=== PATIENT | male | born 1965 | race Caucasian/White ===

== ENCOUNTER 2016-12-31 10:00 | Outpatient (CLI) ==
[2016-12-31 10:41] LABS: BASOPHILS # (AUTO) 0.1 K/uL (0-0.2); BASOPHILS % (AUTO) 0.7 % (0.0-3.0); EOSINOPHILS # (AUTO) 0.2 K/ul (0.0-0.7); EOSINOPHILS % (AUTO) 1.5 % (0.0-7.0); HEMATOCRIT 56.6 % (42.0-52.0); HEMOGLOBIN 18.7 g/dl (14.0-18.0); IMMATURE GRANULOCYTE % (AUTO) 0.3 % (0.0-5.0); LYMPHOCYTES # (AUTO) 2.5 K/uL (0.60-3.4); LYMPHOCYTES % (AUTO) 22.4 (10.0-50.0); MEAN CORPUSCULAR HEMOGLOBIN 30.1 pg (27.0-31.0); MONOCYTES # (AUTO) 0.9 K/uL (0.4-2.0); MONOCYTES % (AUTO) 7.7 (0-10); NEUTROPHILS # (AUTO) 7.6 K/ul (2.0-6.9); NEUTROPHILS % (AUTO) 67.4; PLATELET COUNT 174 10^3/uL (140-440); RED BLOOD COUNT 6.22 10^6/ul (4.70-6.10); WHITE BLOOD COUNT 11.23 K/ul (4.2-10.2)
[2016-12-31 10:48] LABS: BILIRUBIN,URINE Negative (NEGATIVE); KETONES,URINE Negative (NEGATIVE); LEUKOCYTE ESTERASE ,URINE Negative (NEGATIVE); NITRITE,URINE Negative (NEGATIVE); PH,URINE 5.5 (5-9); PROTEIN,URINE Trace (NEGATIVE); URINE, BLOOD Negative (NEGATIVE)
[2016-12-31 10:50] LABS: ADD URINE MICROSCOPIC YES
[2016-12-31 10:54] LABS: ALBUMIN 3.8 g/dL (3.4-5.0); ALBUMIN/GLOBULIN RATIO 1.06; ANION GAP 12.4; BILIRUBIN,TOTAL 0.69 mg/dL (0.00-1.20); BUN/CREATININE RATIO 15.47; CALCIUM 9.5 mg/dL (8.2-10.2); CHOL/HDL RATIO 6.3 (4.5-6.4); CREATININE 0.84 mg/dL (0.60-1.10); POTASSIUM 4.4 mmol/L (3.5-5.1); TOTAL PROTEIN 7.4 g/dL (6.4-8.2)
== END 2016-12-31 10:01 | disposition home or self-care (01) ==
LOC: LAB 10:00
PROVIDERS: ATTEND Nurse Practitioner Family
DX: R06.02 Shortness of breath (principal); L03.116 Cellulitis of left lower limb; E66.9 Obesity, unspecified
CPT/HCPCS: 36415; 80053; 80061; 81001; 83036; 85025; 93005; 93010

== ENCOUNTER 2017-01-28 18:23 | Inpatient (IN) ==
[2017-01-28] MEDS ORDERED: ROCEPHIN 1 GM in SODIUM CHLORIDE 50 ML IV SCH (19:30)
[2017-01-28] MEDS ORDERED: VANCOMYCIN 1 GM in SODIUM CHLORIDE 250 ML IV SCH (19:30)
[2017-01-28 19:42] VITALS: BMI 47.7
[2017-01-28 20:05] LABS: BASOPHILS # (AUTO) 0.1 K/uL (0-0.2); BASOPHILS % (AUTO) 0.4 % (0.0-3.0); EOSINOPHILS # (AUTO) 0.2 K/ul (0.0-0.7); EOSINOPHILS % (AUTO) 1.6 % (0.0-7.0); HEMATOCRIT 55.3 % (42.0-52.0); IMMATURE GRANULOCYTE % (AUTO) 0.5 % (0.0-5.0); LYMPHOCYTES # (AUTO) 1.9 K/uL (0.60-3.4); LYMPHOCYTES % (AUTO) 15.3 (10.0-50.0); MEAN CORPUSCULAR HEMOGLOBIN 29.6 pg (27.0-31.0); MEAN CORPUSCULAR HGB CONC 32.5 (31.8-35.4); MEAN CORPUSCULAR VOLUME 90.8 fl (80.0-94.0); MONOCYTES % (AUTO) 7.7 (0-10); NEUTROPHILS # (AUTO) 9.4 K/ul (2.0-6.9); NEUTROPHILS % (AUTO) 74.5; PLATELET COUNT 184 10^3/uL (140-440); RED BLOOD COUNT 6.09 10^6/ul (4.70-6.10); WHITE BLOOD COUNT 12.65 K/ul (4.2-10.2)
[2017-01-28 20:25] LABS: ALBUMIN 3.5 g/dL (3.4-5.0); ALBUMIN/GLOBULIN RATIO 1.06; ANION GAP 11.1; BILIRUBIN,TOTAL 0.5 mg/dL (0.00-1.20); BUN/CREATININE RATIO 14.28; CREATININE 0.98 mg/dL (0.60-1.10); POTASSIUM 4.1 mmol/L (3.5-5.1); TOTAL PROTEIN 6.8 g/dL (6.4-8.2)
[2017-01-28 20:35] LABS: ABG PH 7.331 (7.35-7.45)
[2017-01-28 20:36] LABS: ABG BASE EXCESS 6 (-2.0-2.0); ABG HCO3 32.2 (22.0-26.0); ABG TCO2 34 (22.0-28.0)
--- NOTE | 2017-01-28 20:49 | CT ---
EXAM: CT chest without contrast TECHNIQUE: Helical axial CT of the chest was performed without contrast with coronal and sagittal re constructions. COMPARISON: Chest x-ray from 02/07/2012 HISTORY: Shortness of breath FINDINGS: Lung parenchyma: There is a solitary pulmonary nodule in the left lung base measuring 1.4 cm in diam eter which shows no calcification or spiculation. There are no infiltrates or effusions. Mediastinum: No pathologic hilar or mediastinal adenopathy. There are some minimal coronary calcific ations. There is no pericardial effusion. No significant aortic or great vessel calcification. The a moshe is otherwise normal with no aneurysm or dissection. Upper Abdomen: No focal or acute abnormality.There is some calcific atherosclerosis of the aorta. Osseous structures: Nothing acute. Surrounding soft tissues including the thyroid gland are normal. No supraclavicular or axillary daisy opathy. IMPRESSION: 1. No acute abnormality. Specifically no evidence for infiltrate or failure. 2. Solitary pulmonary nodule in the left lung base as described. This may be managed by either PET CT, 3-month follow-up or biopsy. 3. Minimal coronary calcifications and minimal calcific atherosclerosis of the aorta.
[2017-01-28] MEDS ORDERED: MOTRIN PO PRN (20:51)
[2017-01-28] MEDS ORDERED: ALBUTEROL 0.042% NEB NEB SCH (21:00)
[2017-01-28] MEDS ORDERED: ROCEPHIN ONE (21:17)
[2017-01-28] MEDS: LOVENOX SUBCUT SCH (21:34)
[2017-01-28] MEDS ORDERED: MORPHINE 4 MG/ML SYRINGE IVP PRN (21:35)
[2017-01-28] MEDS ORDERED: NITROSTAT SL PRN (21:35)
[2017-01-28] MEDS ORDERED: VISTARIL INJ IM PRN (21:35)
[2017-01-28] MEDS ORDERED: ATROPINE SULFATE PFS IVP PRN (21:35)
[2017-01-28] MEDS: SYMBICORT 80-4.5 MCG INHALER IH SCH (21:35)
[2017-01-28] MEDS ORDERED: TYLENOL PO PRN (21:35)
[2017-01-28 21:56] LABS: ADD URINE MICROSCOPIC NO; BILIRUBIN,URINE Negative (NEGATIVE); KETONES,URINE Negative (NEGATIVE); LEUKOCYTE ESTERASE ,URINE Negative (NEGATIVE); NITRITE,URINE Negative (NEGATIVE); PH,URINE 6.5 (5-9); PROTEIN,URINE Negative (NEGATIVE); URINE, BLOOD Negative (NEGATIVE)
[2017-01-28 22:15] LABS: TROPONIN I 0.024 ng/ml (0.0000-0.4000)
[2017-01-28 22:16] LABS: CREATINE KINASE MB 3.5 ng/ml (0.0-3.6)
[2017-01-28] MEDS: SOLU-MEDROL 40 MG IVP SCH (22:41)
[2017-01-29] MEDS: DUONEB NEB SCH ×3 (05:10→21:55)
[2017-01-29] MEDS: SOLU-MEDROL 40 MG IVP SCH ×3 (05:29→20:44)
[2017-01-29 06:16] LABS: TROPONIN I 0.024 ng/ml (0.0000-0.4000)
[2017-01-29 06:17] LABS: CREATINE KINASE MB 3.3 ng/ml (0.0-3.6)
[2017-01-29] MEDS: VANCOMYCIN 1 GM in SODIUM CHLORIDE 250 ML IV SCH ×3 (08:01→21:42)
[2017-01-29] MEDS: SYMBICORT 80-4.5 MCG INHALER IH SCH ×2 (08:48→20:40)
[2017-01-29] MEDS: ASPIRIN EC PO SCH (08:49)
[2017-01-29] MEDS: LOVENOX SUBCUT SCH (08:52)
[2017-01-29] MEDS ORDERED: LOVENOX SUBCUT SCH (09:19)
--- NOTE | 2017-01-29 11:07 | PCM.PROG ---
Attending Provider: ATTENDING PROVIDER: [facility] DATE OF SERVICE: 01/29/17 SUBJECTIVE: This 51 year old WHITE/ M was hospitalized 01/28/17 with bilateral lower extremity cellulitis and edema with hypoxemia. ABG showed hypoxemia. CT chest was negative for any infiltrates. D-Dimer is negative. REVIEW OF SYSTEMS: CONSTITUTIONAL: No fever, no chills. ENDOCRINE: No weight loss or weight gain. HEENT: No sinus drainage, no sore throat. CVS: No angina symptoms. No CHF symptoms. No palpitations. No atypical chest pain for CAD. No shortness of breath. RESPIRATORY: No cough, no hemoptysis. GI: No melena. No abdominal pain. No nausea, no vomiting. : No hematuria. No polyuria. SKIN: No rash. MUSCULOSKELETAL: No pain. SERVICE DELIVERY MANAGER: No blackout, no dizziness. No headache. No double vision. PSYCHIATRIC: Not anxious; no depression. No suicidal thoughts. No homicidal thoughts. PHYSICAL EXAMINATION: GENERAL: Lying in bed in no distress. VITAL SIGNS: Temperature 97.5 F, Pulse 108, Respiratory Rate 20, BP 127/93, Pulse Ox 89% HEENT: Normocephalic, atraumatic. Mucosa is dry, pallor positive. NECK: No JVP, no carotid bruit. No lymphadenopathy. CARDIAC: S1, S2, no S3. No murmur, gallop or regurgitation. LUNGS: Decreased breath sounds with expiratory wheezing. ABDOMEN: Soft, non-tender. Bowel sounds active. No rigidity, guarding or CVA tenderness. EXTREMITIES: Bilateral lower extremity edema 3+. Redness on mata areas, multiple open areas, dry looking today, no oozing. No clubbing, cyanosis. NEUROLOGIC: Awake, alert and oriented x3. LYMPHATIC: No palpable lymph nodes SKIN: Not dry. Intact. MUSCULOSKELETAL: No joint swelling. LAB REVIEW: 01/28/17 20:04 01/28/17 20:04 01/29/17 05:38: Total Creatine Kinase 131, CK-MB (CK-2) 3.3, CK-MB (CK-2) % 2.97279, Myoglobin 68, Troponin I 0.0240 01/28/17 21:50: Urine Color Yellow, Urine Clarity Clear, Urine pH 6.5, Ur Specific Monroe 1.025, Urine Protein Negative, Urine Glucose (UA) Negative, Urine Ketones Negative, Urine Blood Negative, Urine Nitrite Negative, Urine Bilirubin Negative, Urine Urobilinogen 1.0, Ur Leukocyte Esterase Negative 01/28/17 20:04: WBC 12.65 H, RBC 6.09, Hgb 18.0, Hct 55.3 H, MCV 90.8, MCH 29.6 , MCHC 32.5, RDW Coeff of Bee 15.1 H, Plt Count 184, Immature Gran % (Auto) 0.5 , Neut % (Auto) 74.5, Lymph % (Auto) 15.3, Allen % (Auto) 7.7, Eos % (Auto) 1.6, Baso % (Auto) 0.4, Immature Gran # (Auto) 0.1, Neut # 9.4 H, Lymph # 1.9, Allen # 1.0, Eos # 0.2, Baso # 0.1, D-Dimer (Manual) 242.13, Sodium 141, Potassium 4.1 , Chloride 102, Carbon Dioxide 32, Anion Gap 11.1, BUN 14, Creatinine 0.98, Estimated GFR (MDRD) 80.00, BUN/Creatinine Ratio 14.28, Glucose 113 H, Calcium 9.0, Total Bilirubin 0.50, AST 15, ALT 22, Alkaline Phosphatase 69, B- Natriuretic Peptide 11, Total Protein 6.8, Albumin 3.5, Globulin 3.3, Albumin/ Globulin Ratio 1.06 01/28/17 20:00: Total Creatine Kinase 166, CK-MB (CK-2) 3.5, CK-MB (CK-2) % 2.04345, Myoglobin 110, Troponin I 0.0240 01/28/17 19:20: Puncture Site Lb, O2 Saturation 82.0 L, ABG pH 7.331 L, ABG pCO2 61.0 H, ABG pO2 51.0 L*, ABG HCO3 32.2 H, ABG Total CO2 34 H, ABG Base Excess 6 H, Jelani Test +, FiO2 % 21.0 ASSESSMENT: 1. Bilateral lower extremity cellulitis 2. Hypoxemia 3. Obesity PLAN: 1. Echocardiogram 2. PFT 3. Decrease Lovenox to 40 mg 4. Continue Rocephin and Vancomycin 5. Venous Doppler Plan and coordination of the patient's care discussed in the presence of Visual Display Manager and nurse. CONDITION: Stable SCRIBED BY: DEANNA CASTELLANO Window/Distribution Clerk scribed while in presence of service performed by Dr. JORGITO STUART[facility] on 01/29/17 ([id number])
--- NOTE | 2017-01-29 14:40 | US ---
EXAM: Ultrasound venous Doppler bilateral lower extremity HISTORY: Bilateral lower extremity cellulitis, edema COMPARISON: None TECHNIQUE: Venous duplex ultrasound of the right and left lower extremity was performed using color , arriaga-scale, and Doppler flow imaging. FINDINGS: There is normal color flow and arriaga scale appearance of the right and left common femoral , greater saphenous, profunda femoral, femoral, popliteal, peroneal, and (right) posterior tibial ve ins without evidence of intraluminal thrombus. Compression and augmentation is normal. The left po sterior tibial and bilateral anterior tibial veins not visualized. Bilateral subcutaneous edema IMPRESSION: No right or left lower extremity deep venous thrombosis at the visualized levels.
[2017-01-29] MEDS: ROCEPHIN 1 GM in SODIUM CHLORIDE 50 ML IV SCH (20:40)
[2017-01-30] MEDS: SOLU-MEDROL 40 MG IVP SCH ×3 (04:03→21:51)
[2017-01-30] MEDS: VANCOMYCIN 1 GM in SODIUM CHLORIDE 250 ML IV SCH ×3 (04:04→21:52)
[2017-01-30] MEDS: DUONEB NEB SCH ×3 (05:05→22:01)
[2017-01-30] MEDS ORDERED: LASIX IVP STA (08:26)
[2017-01-30] MEDS: SYMBICORT 80-4.5 MCG INHALER IH SCH ×2 (08:47→20:55)
[2017-01-30] MEDS: ASPIRIN EC PO SCH (08:47)
[2017-01-30] MEDS: LOVENOX SUBCUT SCH (08:47)
--- NOTE | 2017-01-30 11:06 | PCM.PROG ---
Attending Provider: ATTENDING PROVIDER: [facility] OF SERVICE: 01/30/17 SUBJECTIVE: This 51 year old WHITE/ M was hospitalized 01/28/17. The patient continues to have a cough. An echocardiogram was done by Dr. Boss which showed right ventricular hypertrophy and left ventricular hypertrophy. The patient did not do well with PFT. The wounds are dried on legs, no oozing. Redness and swelling is less. REVIEW OF SYSTEMS: CONSTITUTIONAL: No fever, no chills. ENDOCRINE: No weight loss or weight gain. HEENT: No sinus drainage, no sore throat. CVS: No angina symptoms. No CHF symptoms. No palpitations. No atypical chest pain for CAD. No shortness of breath. RESPIRATORY: No cough, no hemoptysis. GI: No melena. No abdominal pain. No nausea, no vomiting. : No hematuria. No polyuria. SKIN: Redness of mata and tibia bilaterally. There are open areas which are not oozing. MUSCULOSKELETAL: No pain. TRACTOR OPERATOR HELPER: No blackout, no dizziness. No headache. No double vision. PSYCHIATRIC: Not anxious; no depression. No suicidal thoughts. No homicidal thoughts. PHYSICAL EXAMINATION: GENERAL: Lying in bed in no distress. VITAL SIGNS: Temperature 97.3 F, Pulse 100, Respiratory Rate 22, BP 133/86, Pulse Ox 88% HEENT: Normocephalic, atraumatic. Mucosa is dry, pallor positive. NECK: No JVP, no carotid bruit. No lymphadenopathy. CARDIAC: S1, S2, no S3. No murmur, gallop or regurgitation. LUNGS: Decreased entry with basilar crackles. ABDOMEN: Soft, non-tender. Bowel sounds active. No rigidity, guarding or CVA tenderness. EXTREMITIES: 2+ edema. Redness present on mata of tibia bilaterally. Open areas are dry, not oozing liquid. Nontender. Not warm to touch. NEUROLOGIC: Awake, alert and oriented x3. LYMPHATIC: No palpable lymph nodes SKIN: As described above. MUSCULOSKELETAL: No joint swelling. LAB REVIEW: 01/28/17 20:04 01/28/17 20:04 ASSESSMENT: 1. Bilateral lower extremity cellulitis, MRSA 2. Hypoxemia 3. Obesity PLAN: 1. Lasix 40 mg IV one time dose 2. Keep legs elevated when sitting 3. Continue Rocephin and Vancomycin 4. Duonebs Plan and coordination of the patient's care discussed in the presence of Security Manager and nurse. CONDITION: Stable SCRIBED BY: DEANNA CASTELLANO Air Conditioning Installer Supervisor scribed while in presence of service performed by Dr. JORGITO STUART[facility] on 01/30/17 ([id number])
--- NOTE | 2017-01-30 11:22 | ECHO2D ---
Date of Exam: 01/29/17 Ordering Physician: [facility]--JORGITO STUART Reason for Echo: HYPOXEMIA, SINUS TACHYCARDIA, M-Mode Normal Adult Results LV Dimensions Normal Adult Results AoV Opening excursions >1.6 >1.6 LVEDD-base- 3.5-5.8 5.3 Ao root dimensions 2.0-3.7 3.6 LVESD-base- 3.1-4.6 L. Atrium dimensions 1.9-3.8 5.0 Post. Wall thickness 0.8-1.1 1.4 IV septum (thickness) 0.7-1.2 1.6 Post. Wall excursion 0.72-1.3 NORMAL Septal motion NORMAL Systolic motion R. Ventricular cavity 1.5-2.0 3.0 LVEF 60% 66% Paradoxical septal wall motion NONE 2-D : ENLARGED LEFT ATRIAL AND RIGHT VENTRICLE CAVITIES--NORMAL LEFT VENTRICLE CONTRACTILITY--NO EFFUSION, NO THROMBUS, NORMAL VALVES M-MODE: MV: NORMAL AV: NORMAL TV: NORMAL PV: CHAMBER SIZE: ENLARGED LEFT ATRIAL AND RIGHT VENTRICLE CAVITIES WALL MOTION: NORMAL PERICARDIUM: NORMAL INTERPRETATION: 1. LEFT VENTRICULAR HYPERTROPHY (MODERATE) WITH ENLARGED LEFT ATRIAL CAVITY 2. NORMAL LEFT VENTRICULAR CONTRACTILITY 3. ENLARGED RIGHT VENTRICLE CAVITY 4. NORMAL VALVES MTDD
[2017-01-30] MEDS: ROCEPHIN 1 GM in SODIUM CHLORIDE 50 ML IV SCH (20:56)
[2017-01-31] MEDS: VANCOMYCIN 1 GM in SODIUM CHLORIDE 250 ML IV SCH (04:36)
[2017-01-31] MEDS: SOLU-MEDROL 40 MG IVP SCH ×2 (04:36→14:24)
[2017-01-31] MEDS: DUONEB NEB SCH (05:06)
[2017-01-31 05:56] LABS: BASOPHILS % (AUTO) 0.2 % (0.0-3.0); HEMATOCRIT 56.5 % (42.0-52.0); HEMOGLOBIN 18.4 g/dl (14.0-18.0); IMMATURE GRANULOCYTE % (AUTO) 0.6 % (0.0-5.0); LYMPHOCYTES # (AUTO) 1.2 K/uL (0.60-3.4); LYMPHOCYTES % (AUTO) 6.2 (10.0-50.0); MEAN CORPUSCULAR HEMOGLOBIN 29.6 pg (27.0-31.0); MEAN CORPUSCULAR HGB CONC 32.6 (31.8-35.4); MONOCYTES # (AUTO) 0.7 K/uL (0.4-2.0); MONOCYTES % (AUTO) 3.6 (0-10); NEUTROPHILS # (AUTO) 17.6 K/ul (2.0-6.9); NEUTROPHILS % (AUTO) 89.4; PLATELET COUNT 205 10^3/uL (140-440); RED BLOOD COUNT 6.21 10^6/ul (4.70-6.10); WHITE BLOOD COUNT 19.73 K/ul (4.2-10.2)
[2017-01-31 06:30] LABS: ALBUMIN 3.5 g/dL (3.4-5.0); ANION GAP 12.5; BILIRUBIN,TOTAL 0.43 mg/dL (0.00-1.20); BUN/CREATININE RATIO 20.25; CALCIUM 9.3 mg/dL (8.2-10.2); CREATININE 0.79 mg/dL (0.60-1.10); POTASSIUM 4.5 mmol/L (3.5-5.1)
[2017-01-31] MEDS ORDERED: LASIX IVP STA (08:24)
[2017-01-31] MEDS ORDERED: CARDIZEM PO SCH (09:00)
[2017-01-31] MEDS: ASPIRIN EC PO SCH (09:20)
[2017-01-31] MEDS: LOVENOX SUBCUT SCH (09:21)
[2017-01-31] MEDS: SYMBICORT 80-4.5 MCG INHALER IH SCH (09:23)
[2017-01-31 12:04] VITALS: BP 138/88; TEMP 96.9
[2017-01-31] MEDS ORDERED: MEDROL DOSEPAK PO SCH ×2 (13:30→14:00)
[2017-01-31] MEDS ORDERED: BACTRIM DS 800/160 MG PO SCH (14:00)
--- NOTE | 2017-02-06 09:08 | DS ---
DATE OF SERVICE: 01/31/17 FINAL DIAGNOSIS: 1. COPD exacerbation secondary to the bronchitis 2. Severe COPD with FEV1 of 55 3. Enlarged right ventricle per echocardiogram 4. Bilateral lower extremity cellulitis, severe with MRSA positive 5. Bilateral lower extremity swelling, dependant edema 1+ 6. Non-compliance 7. Obesity DISCHARGE INSTRUCTIONS: Discharge the patient home. Continue using the oxygen as patient is qualified for the oxygen. MEDICATIONS AT DISCHARGE: Ibuprofen Albuterol Sulfate Symbicort Bactrim DS Lopressor NEW PRESCRIPTIONS: Bactrim DS twice a day for 7 days Medrol Dosepak Metoprolol Tartrate 25mg PO twice a day DIET INSTRUCTIONS: Cardiac and Health, no salt diet ACTIVITY: As much as tolerated. SMOKING: Current every day smoker DISEASE SPECIFIC EDUCATION: COPD Risk of Pneumonia, need of the pneumonia vaccination been discussed with the patient and verbalized understanding. HOSPITAL COURSE: Damion Hawkins who is followed at the [facility] came to the office with shortness of breath and saturation was 89 to 90%. Shortness of breath worsening and leg edema and cellulitis. At that time the patient was admitted to the hospital and started on the Rocephin 1gram daily and Vancomycin, DUO NEBS and Solu-Medrol. Echocardiogram was done which did show the right ventricular hypertrophy, left ventricular hypertrophy. Pulmonary function test done which did show the ejection fraction of the 66% and severe COPD. CT of chest showed the COPD. Venous Doppler needed for the blood clots. Meanwhile the redness, swelling in the lower extremities getting better. Lasix 40mg IV push was given and there was almost wrinkles on the legs. Drainage is decreased. The wound did grow MRSA in the wound. The patient is started on the Bactrim DS and advised for the discharge. The patient explained about the lifestyle modification and weight loss, keeping the legs elevated, No salt diet. He will be followed in the [facility] within one week. TIME SPENT: More than 55 minutes today. ESTUARDO
== END 2017-01-31 15:15 | disposition home or self-care (01) | DRG 603 ==
LOC: MEDSURG B 18:23
PROVIDERS: ADMIT Emergency Medicine; ATTEND Emergency Medicine
DX: L03.116 Cellulitis of left lower limb (principal); J44.1 Chronic obstructive pulmonary disease with (acute) exacerbation; J44.0 Chronic obstructive pulmonary disease with (acute) lower respiratory infection; L03.115 Cellulitis of right lower limb; R09.02 Hypoxemia; B95.62 Methicillin resistant Staphylococcus aureus infection as the cause of diseases classified elsewhere; J20.9 Acute bronchitis, unspecified; R06.02 Shortness of breath; R60.0 Localized edema; I51.7 Cardiomegaly; Z91.19 Patient's noncompliance with other medical treatment and regimen; E66.9 Obesity, unspecified
CPT/HCPCS: 36415; 80053; 80202; 81001; 82550; 82553; 82803; 83874; 83880; 84484; 85025; 85379; 87070; 87081; 87186; 93005; 93010; 94640; 94761; 97802

== ENCOUNTER 2017-02-17 12:08 | Outpatient (CLI) | END 2017-02-17 12:09 | disposition home or self-care (01) | LOC: LAB 12:08 | PROVIDERS: ATTEND Emergency Medicine | DX: S81.811A Laceration without foreign body, right lower leg, initial encounter (principal) | CPT/HCPCS: 87070 ==

== ENCOUNTER 2017-07-07 12:19 | Outpatient (CLI) ==
--- NOTE | 2017-07-07 13:32 | CT ---
EXAM: CT chest without contrast. HISTORY: Cough. Shortness of breath. Pulmonary nodule follow-up. COMPARISON: 01/28/2017. TECHNIQUE: Multiple axial images of the chest were obtained without intravenous contrast. Images we re reformatted in the sagittal and coronal planes. FINDINGS: Evaluation for lymphadenopathy is limited by lack of intravenous contrast. Multiple media stinal lymph nodes are stable since the prior examination. Heart size is normal. There is no perica rdial effusion. A left lower lobe nodules central coarse calcification measures 1.7 x 1.5 cm on axial image 51, which is stable. There is new band-like consolidation along the right major fissure in the lower lobe. A few additional thin linear opacities are seen in the adjacent right lower and middle lobes. No pleu ral effusion or pneumothorax detected. Limited images of the upper abdomen demonstrate a partially exophytic medial right renal cortical mas s measuring 3.7 x 3.4 cm on axial image 70 with internal density of 15 HU. No acute osseous abnormal ity identified. IMPRESSION: 1. Stable left lower lobe nodule. 2. New right lower lobe consolidation. Follow-up CT within 3 months recommended for reassessment. 3. Probable right renal cyst. Consider correlation with ultrasound.
== END 2017-07-07 12:20 | disposition home or self-care (01) ==
LOC: RAD 12:19
PROVIDERS: ATTEND Emergency Medicine
DX: R91.1 Solitary pulmonary nodule (principal)

== ENCOUNTER 2017-07-08 13:21 | Outpatient (CLI) | END 2017-07-08 13:22 | disposition home or self-care (01) | LOC: CAR 13:21 | PROVIDERS: ATTEND Emergency Medicine | DX: G47.30 Sleep apnea, unspecified (principal) | CPT/HCPCS: 95810 ==

== ENCOUNTER 2017-09-30 10:35 | Outpatient (CLI) | END 2017-09-30 10:36 | LOC: LAB 10:35 | PROVIDERS: ATTEND Emergency Medicine | DX: E78.5 Hyperlipidemia, unspecified (principal); I10 Essential (primary) hypertension; J44.9 Chronic obstructive pulmonary disease, unspecified | CPT/HCPCS: 36415; 80053; 80061; 84443; 85025 ==

== ENCOUNTER 2017-10-02 13:47 | Outpatient (CLI) | END 2017-10-02 13:48 | disposition home or self-care (01) | LOC: LAB 13:47 | PROVIDERS: ATTEND Emergency Medicine | DX: E87.5 Hyperkalemia (principal); I10 Essential (primary) hypertension | CPT/HCPCS: 36415; 80053 ==

== ENCOUNTER 2017-11-03 08:32 | Outpatient (CLI) | END 2017-11-03 08:33 | disposition home or self-care (01) | LOC: CAR 08:32 | PROVIDERS: ATTEND Emergency Medicine | DX: J44.9 Chronic obstructive pulmonary disease, unspecified (principal) ==

== ENCOUNTER 2017-11-04 16:11 | Outpatient (CLI) | END 2017-11-04 16:12 | disposition home or self-care (01) | LOC: CAR 16:11 | PROVIDERS: ATTEND Psychiatry & Neurology Neurology | DX: G47.33 Obstructive sleep apnea (adult) (pediatric) (principal) ==

== ENCOUNTER 2017-12-10 09:15 | Outpatient (CLI) ==
--- NOTE | 2017-12-10 11:45 | MRI ---
EXAM: MRI of the left shoulder without contrast COMPARISON: None available. HISTORY: Left shoulder pain with decreased range of motion. No known injury. TECHNIQUE: Multiplanar noncontrast MR images of the left shoulder were acquired using a 1.2 Shelby ma gnet. Multiple sequences were repeated due to patient motion artifact with best possible quality elis ges obtained given the patient's condition per the technologist performing the study. FINDINGS: No recent radiographs of the left shoulder are available for comparison and radiographic c orrelation is recommended. There is marked supraspinatus and subscapularis tendinosis with moderate infraspinatus tendinosis. T here is thinning of the distal 2.0 cm of the supraspinatus with irregularity of both the articular an d bursal surfaces consistent with a tear involving greater than 50% of the tendon thickness with a ne ar full-thickness component at the level of the critical zone. No definite full-thickness tear or te ndon retraction though a pinhole full-thickness perforation is not excluded. Fluid in the overlying subacromial/subdeltoid bursa. Partial tear of the distal subscapularis. There is glenohumeral joint osteoarthrosis with moderate cartilage thinning and small marginal osteop hytes. Limited assessment glenoid labrum on this non arthrographic study. Linear inversion recovery hyperintense signal undercutting the superior/posterosuperior glenoid labrum concerning for a small tear. Small glenohumeral joint effusion. No acute fracture or dislocation. Heterogeneous signal inv olving the bone marrow with confluent regions of inversion recovery hyperintense/T1 hypointense signa l suggesting nonspecific red marrow reconversion/hyperplasia. No focal marrow lesion identified. Hyp erintense signal involving the axillary pouch which may be related to a capsular sprain or sequela of adhesive capsulitis. The long head of the biceps is located within the bicipital groove with mild tendinosis. There are marked hypertrophic degenerative changes of the acromioclavicular joint. No evidence of an os acromiale or abnormal widening of the acromioclavicular joint space. No soft tissue mass identif ied. Mild diffuse muscle atrophy. IMPRESSION: 1. Marked rotator cuff tendinosis. Partial-thickness tear of the distal supraspinatus with near ful l-thickness component as described. No definite full-thickness tear or tendon retraction though a pi nhole full-thickness perforation is not excluded. Partial tear of the distal subscapularis. 2. Fluid in the subacromial/subdeltoid bursa. 3. Glenohumeral joint osteoarthrosis. Small joint effusion. Hyperintense signal involving the axil claudia pouch related to previous capsular sprain or changes of adhesive capsulitis. 4. Mild long head biceps tendinosis. 5. Marked hypertrophic degenerative changes of the acromioclavicular joint. 6. Heterogeneous signal involving the bone marrow suggesting nonspecific red marrow reconversion/hyp erplasia. No focal marrow lesion.
== END 2017-12-10 09:16 | disposition home or self-care (01) ==
LOC: RAD 09:15
PROVIDERS: ATTEND Emergency Medicine
DX: M25.512 Pain in left shoulder (principal)

== ENCOUNTER 2018-02-19 08:32 | Outpatient (RCR) ==
--- NOTE | 2018-02-19 13:50 | RS.OPPTEV2 ---
Date of Note: 02/19/18 Visit #: 1 Date of Evaluation: 02/19/18 Payer Source: Medicaid Date of Onset/Injury/Change in Status: 11/23/17 Surgery Performed?: No Treatment Diagnosis: Left shoulder pain History of Condition/Mechanism of Injury:: Reports no specific injury. States pain started a few months ago. Reports waking up with pain. States he even went out and bought a sling to support the shoulder. Prior Level of Function.....Patient was independent with: ADL's, Self Care, Caregiving, Ambulation/Mobility, Community Integration/Access Functional Limitations: Self Care, ADL's, Reaching, Pushing, Pulling, Lifting Current Subjective/complaints:: Patient reports left shoulder pain for a few months. States his pain has improved since the initial onse, however, he continues to have pain with reaching, pushing, or pulling. States he has had to change how he performs selfcare and ADL's, so not to aggrevate the left shoulder. He denies tingling or numbness into the left UE. Reports most left shoulder pain is over the anterior/lateral aspect of the joint. States he sleeps on his right side with his left shoulder supported by a pillow. Treatment Side (optional): Left Medical History Medical History: COPD Medical History Comments:: LE neuropathy Surgical History Comments:: Hernia repair, foot surgeries Smoking Status: Current every day smoker Diagnostic Testing/Imaging:: MRI of left shoulder on 12/10/17: Marked rotator cuff tendinosis. Partial-thickness tear of the distal supraspinatus with near full-thickness component as described. No definited full-thickness tear of tendon retraction though a pinhole full-thickness performation is not excluded. Partial tear of the distal subscapularis. Fluid in the subacromial/subdeltoid bursa. Glenohumeral joint osteoarthrosis. Small joint effusion. Hyperintense signal involving the axillary pouch related to previous capsular sprain or changes of adhesive capsulitis. Mild long head biceps tendinosis. marked hypertrophic degenerative changes of the acromioclavicular joint. Hx Home Medications: Mobic Patient's Goals: His goal is to get relief of left shoulder pain. Pain Assessment - Pain Description Pain Location: left shoulder Current Pain Intensity: not quantified Worst Pain Intensity: not quanitified Functional Outcome Measure UE Functional Index: 55 (55/80=31.25% impairment) - G Codes & Severity Modifier G Codes & Modifier: NA Source of G Code score: Na Observation - Observation Posture: Forward Head, Rounded Shoulders, Scapula Asymmetry (right scapula elevated) Handedness: Right Shoulder ROM: Right WFL's Shoulder Muscle Strength: Right WFL's - Left Shoulder ROM Left Shoulder Flexion: 114 (degrees AROM, pain starts at 99 degrees) Left Shoulder Abduction: 120 (degrees AROM, pain starts at 78 degrees) Left Shoulder Internal Rotation: 60 (degrees AROM) Left Shoulder External Rotation: 30 (degrees AROM) Left Shoulder ROM Limitations: Pain Comments: PROM: flexion 140 degrees, abduction 130 degrees, IR 70 degrees, ER 45 -50 degrees. All end range exhibits soft end-feel. - Left Shoulder Strength Left Shoulder Flexion: 4 Good Left Shoulder Extension: 5 Normal Left Shoulder Abduction: 4- Good- Left Shoulder Adduction: 4+ Good + Left Shoulder External Rotation: 4 Good Left Shoulder Internal Rotation: 4 Good - Special Tests Shoulder Empty Can (Supraspinatus) Test: Positive Left Shoulder Yergason's Test: Negative Left Shoulder Speed's Sign Test: Negative Left Shoulder Drop Arm Test: Negative Left Shoulder Osuna-Yobani Impingement Test: Positive Left Comments: Lift off test: Positive on the Left Chopper Feeder Strength Left Hand Chopper Feeder Strength: 129 lbs. Right Hand Chopper Feeder Strength: 132 lbs. Dynamometer Testing Position: 2nd Position Palpation Comments:: Tenderness over the insertion site of the supraspinatus and infraspinatus tendons. Reports no specific tenderness with palpation over the long head of the biceps tendon. Sensation - Sensation Right Upper Extremity: Intact/Normal Left Upper Extremity: Intact/Normal - Treatment Modality: Ultrasound Parameters/Method Applied: 1.7 w/cm 2 continuous X 9 mins to left shoulder with focus on anterior/lateral aspect of GH joint. Patient Position: Sitting Interventions - Exercise/Activities/Manual Therapy Exercises/Activities: Patient instructed in HEP of pendulum, RTC series in pendulum position, and scapular retraction. Recommended he continue to avoid activities that cause pain in the left shoulder. Recommended he ice the shoulder following exercises. Discussed the difference between Passive and Active ROM. Explained the benefit of PROM to maintain or gain shoulder joint ROM. Manual Therapy: NA HOME EXERCISE PROGRAM: pendulum, RTC series in pendulum position, and scapular retraction. - Charges Timed Code Treatment Minutes: 9 mins Total Treatment Time: 50 mins Procedures billed for this date of service:: PRAMOD CARRIZALES, US EVALUATION COMPLEXITY LEVEL EVALUATION COMPLEXITY LEVEL: HISTORY: Low (No prior left shoulder issues), EXAM OF BODY SYSTEMS: Low, CLINICAL PRESENTATION: Low, CLINICAL DECISION MAKING: Low Assessment Assessment: Patient presents to therapy with a diagnosis of Incomplete tear of left rotator cuff. He reports left shoulder pain with reaching, pushing, or pulling. He demonstrates limited Active and Passive ROM of the left shoulder and also demonstrates weakness of the left rotator cuff muscles. He demonstrates involvement of the supraspinatus and subscapularis. He shows good potential to benefit from modalities and exercises to gain functional pain-free AROM of the left shoulder. Patient Education: Education of diagnosis, Body/Joint mechanics, Home Exercise Program, Home Safety, Activity Modification, Education of Plan of Care Rehab Potential: Good Short Term Goals Goal #1: Patient independent in and compliant with HEP. Goal to be met by: 02/26/18 Goal #2: Left shoulder PROM WFL's. Goal to be met by: 03/05/18 Goal #3: Left shoulder active flexion to 120 degrees. Goal to be met by: 03/05/18 Strip Tank Tender Goals Goal #1: Pt knows HEP and to continue ex's to maintain functional level at D/C. Goal to be met by: 03/26/18 Goal #2: Score on UE functional scale improved to 70/80. Goal to be met by: 03/26/18 Goal #3: L shldr AROM to enable patient to perform all ADL's and selfcare w/o pain. Goal to be met by: 03/26/18 Goal #4: Pt to demo understanding of joint protection & improved postural awareness. Goal to be met by: 03/26/18 Plan - Treatment to be Provided Procedures: Therapeutic Exercises, Therapeutic Activity, Manual Therapy, Splinting/Taping, Patient Education Modalities: Electrical Stimulation, Ultrasound/Phonophoresis, Cryotherapy, Hot Packs - Treatment Plan Frequency: 3 X week Duration: 3 weeks ORDER # VISITS AND/OR THROUGH DATE: 03/26/18 - Treatment Code (1) Shoulder pain Code(s): M25.519 - PAIN IN UNSPECIFIED SHOULDER Qualifiers: Chronicity: acute Laterality: left Qualified Code(s): M25.512 - Pain in left shoulder (2) Shoulder stiffness Qualifiers: Laterality: left Qualified Code(s): M25.612 - Stiffness of left shoulder, not elsewhere classified (3) Incomplete rotator cuff tear Code(s): M75.110 - INCMPL ROTATR-CUFF TEAR/RUPTR OF UNSP SHOULDER, NOT TRAUMA Qualifiers: Laterality: left Qualified Code(s): M75.112 - Incomplete rotator cuff tear or rupture of left shoulder, not specified as traumatic
== END 2018-02-21 23:59 ==
PROVIDERS: ATTEND Emergency Medicine
DX: M75.112 Incomplete rotator cuff tear or rupture of left shoulder, not specified as traumatic (principal); M25.512 Pain in left shoulder; M25.612 Stiffness of left shoulder, not elsewhere classified

== ENCOUNTER 2018-03-16 10:00 | Outpatient (RCR) ==
[2017-11-03 08:39] VITALS: BMI 47.7
--- NOTE | 2018-02-23 10:38 | RS.OPPTDN ---
Subjective Date of Note: 02/23/18 Visit #: 2 Date of Evaluation: 02/19/18 Payer Source: Medicaid Treatment Diagnosis: Left shoulder pain Current Subjective/complaints:: Reports he has been working on his HEP and has been careful to avoid pain as instructed. He he cannot tell any difference in his pain at this time. Pain Assessment - Pain Description Pain Location: left shoulder - Treatment Modality: Ultrasound Parameters/Method Applied: 1.7 X 10 mins continuous to left shoulder with focus on lateral and anterior gh joint. Patient Position: Sitting Interventions - Exercise/Activities/Manual Therapy Exercises/Activities: Patient received passive stretching into left shoulder ER , flexion, and ABduction. Most limited with tolerance for Abduction, as he grimaces and reports increased pain with passive ROM to 80-85 degrees abd. Performs isometrics X reps each into left shoulder flexion, extension, add, abd , ER, IR, X 2 sets. Patient given red and green theraband for resisted shoulder , performs these in the department with red band without reports of pain. Emphasized to patient to work in short range that does not increase his pain. Total minutes of Exercise: 21 mins Manual Therapy: NA HOME EXERCISE PROGRAM: pendulum, RTC series in pendulum position, and scapular retraction. - Charges Timed Code Treatment Minutes: 31 mins Total Treatment Time: 31 mns Procedures billed for this date of service:: US, EX Assessment: Patient presents to be compliant with HEP and also demonstrates understanding of performing shoulder exercises in a range that does not increase his pain. Should benefit from continued modalities and exercises as tolerated to decrease his pain. Patient Education: Education of diagnosis, Body/Joint mechanics, Home Exercise Program, Home Safety, Activity Modification, Education of Plan of Care Patient demonstrates compliance with HEP?: Yes Short Term Goals Goal #1: Patient independent in and compliant with HEP. Goal to be met by: 02/26/18 Progress towards Goal:: Progressing Goal #2: Left shoulder PROM WFL's. Goal to be met by: 03/05/18 Progress towards Goal:: Progressing Goal #3: Left shoulder active flexion to 120 degrees. Goal to be met by: 03/05/18 Correction Goals Goal #1: Pt knows HEP and to continue ex's to maintain functional level at D/C. Goal to be met by: 03/26/18 Goal #2: Score on UE functional scale improved to 70/80. Goal to be met by: 03/26/18 Goal #3: L shldr AROM to enable patient to perform all ADL's and selfcare w/o pain. Goal to be met by: 03/26/18 Goal #4: Pt to demo understanding of joint protection & improved postural awareness. Goal to be met by: 03/26/18 Plan PLAN OF CARE EXPIRES ON:: 03/26/18 ORDER # VISITS AND/OR THROUGH DATE: 03/26/18 PLAN: Progress RTC strengthening as tolerated.
--- NOTE | 2018-02-27 11:45 | RS.CXNS ---
Date of scheduled appointment: 02/27/18 Type: No Show
--- NOTE | 2018-03-03 10:05 | RS.OPPTDN ---
Subjective Date of Note: 03/03/18 Visit #: 3 Date of Evaluation: 02/19/18 Payer Source: Medicaid Treatment Diagnosis: Left shoulder pain Current Subjective/complaints:: Patient reports the L shoulder pain is minimal at rest today ,but increases with reaching away from his body,such as closing the car door. Pain Assessment - Pain Description Pain Location: L shoulder Pain Description: Dull, Aching Current Pain Intensity: 0 at rest Worst Pain Intensity: not rated Other Comments regarding Pain:: increases withr eraching away from his body ,or reaching behind his body - Treatment Modality: Ultrasound Parameters/Method Applied: 10 mins. @ 1.5 w/cm2 .continuus mode to L RTC tendon area Patient Position: Sitting Interventions - Exercise/Activities/Manual Therapy Exercises/Activities: 30 mins. total of PROM all directions,AAROM for overhead flexion using 3# wand.Isometric shoulder abd/adduction,IR/ER in supine.Standing overhead flexion to 145 on L shoulder.Attempted reaching behind his back ,but pain ful due to limited IR. Total minutes of Exercise: 30 Manual Therapy: NA Total minutes of Manual Therapy: 0 HOME EXERCISE PROGRAM: pendulum, RTC series in pendulum position, and scapular retraction. - Charges Timed Code Treatment Minutes: 40 Total Treatment Time: 40 Procedures billed for this date of service:: US,ex 2 Assessment: Patient has most difficulty and pain with active abduction and IR .He is able to reach the back of his head ,has functional overhead reaching.He does not report tenderness to palpate the biceps tendon or RTC tendons today. Patient Education: Education of diagnosis, Body/Joint mechanics, Home Exercise Program, Home Safety, Activity Modification, Education of Plan of Care Short Term Goals Goal #1: Patient independent in and compliant with HEP. Goal to be met by: 02/26/18 Progress towards Goal:: Progressing Goal #2: Left shoulder PROM WFL's. Goal to be met by: 03/05/18 Progress towards Goal:: Progressing Goal #3: Left shoulder active flexion to 120 degrees. 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 Goal to be met by: 03/26/18 Goal #2: Score on UE functional scale improved to 70/80. Goal to be met by: 03/26/18 Goal #3: L shldr AROM to enable patient to perform all ADL's and selfcare w/o pain. Goal to be met by: 03/26/18 Goal #4: Pt to demo understanding of joint protection & improved postural awareness. Goal to be met by: 03/26/18 Plan PLAN OF CARE EXPIRES ON:: 03/26/18 ORDER # VISITS AND/OR THROUGH DATE: 03/26/18 PLAN: Continue PT to reduce/eliminate L shoulder pain,improve ROM .
--- NOTE | 2018-03-06 11:14 | RS.OPPTDN ---
Subjective Date of Note: 03/06/18 Visit #: 4 Date of Evaluation: 02/19/18 Payer Source: Medicaid Treatment Diagnosis: Left shoulder pain Current Subjective/complaints:: Patient reports the L shoulder is about the same ,continues to have greatest discomfort with reaching away from midline. Pain Assessment - Pain Description Pain Location: L shoulder Pain Description: Dull, Aching Pain Description: sharp at available end ROM Current Pain Intensity: 0 at rest Other Comments regarding Pain:: varies with AROm ,depemdent upon position of the L UE - Treatment Modality: Ultrasound Parameters/Method Applied: 10 mins. @ 1.5 w/cm2 ,continuous mode to L shoulder Patient Position: Sitting Interventions - Exercise/Activities/Manual Therapy Exercises/Activities: 30 mins. total of PROM all directions,progressed to AAROM, including flexion,scaption ,abduction ,ER .IR in short range due to pain.ER to 80 degrees,overhead flexion to 150 degrees .Abduction to 100.IR is 30 degrees and painful. Total minutes of Exercise: 30 Manual Therapy: NA Total minutes of Manual Therapy: 0 HOME EXERCISE PROGRAM: pendulum, RTC series in pendulum position, and scapular retraction. - Charges Timed Code Treatment Minutes: 40 Total Treatment Time: 45 Procedures billed for this date of service:: US,ex 2 Assessment: Patient has improved passive motion for overhead reaching today with less pain ,but continues to have elevation of pain with active abduction or internal rotation.The end feel for each motion is soft ,except for internal rotation when attempting reaching behind his back. Patient Education: Body/Joint mechanics, Home Exercise Program, Activity Modification, Education of Plan of Care Patient demonstrates compliance with HEP?: Yes Short Term Goals Goal #1: Patient independent in and compliant with HEP. Goal to be met by: 02/26/18 Progress towards Goal:: Progressing Goal #2: Left shoulder PROM WFL's. Goal to be met by: 03/05/18 Progress towards Goal:: Progressing Goal #3: Left shoulder active flexion to 120 degrees. 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 Goal to be met by: 03/26/18 Progress towards goal: Progressing Goal #2: Score on UE functional scale improved to 70/80. Goal to be met by: 03/26/18 Goal #3: L shldr AROM to enable patient to perform all ADL's and selfcare w/o pain. Goal to be met by: 03/26/18 Goal #4: Pt to demo understanding of joint protection & improved postural awareness. Goal to be met by: 03/26/18 Progress towards goal: Progressing Plan PLAN OF CARE EXPIRES ON:: 03/26/18 ORDER # VISITS AND/OR THROUGH DATE: 03/26/18 PLAN: Continue PT to reduce/eliminate shoulder pain ,increase ROM for more efficient ADL's.
--- NOTE | 2018-03-10 11:19 | RS.OPPTDN ---
Subjective Date of Note: 03/10/18 Visit #: 5 Date of Evaluation: 02/19/18 Payer Source: Medicaid Treatment Diagnosis: Left shoulder pain Current Subjective/complaints:: Patient reports the reachng behind his back may be , " a little better". Pain Assessment - Pain Description Current Pain Intensity: 0 at erst Other Comments regarding Pain:: Increases with reaching away from his body or at end range of overhead flexion - Treatment Modality: Ultrasound Parameters/Method Applied: 10 mins. @ 1.5 w/cm2 to L shoulder , continuous mode. Patient Position: Sitting Interventions - Exercise/Activities/Manual Therapy Exercises/Activities: 40 mins. total in supine of PROM all directions, progressed to AAROM,including flexion,scaption ,abduction ,ER .IR in short range due to pain.6# wand exercises of chest press and overhead flexion,5 # dumbbell in L hand for scapuar protraction ( boxers punch ) motion.Standing scaption to ~135 degrees.HEP review. Total minutes of Exercise: 40 Manual Therapy: NA Total minutes of Manual Therapy: 0 HOME EXERCISE PROGRAM: pendulum, RTC series in pendulum position, and scapular retraction. - Charges Timed Code Treatment Minutes: 40 Total Treatment Time: 60 Procedures billed for this date of service:: US,ex 3 Assessment: Patient has increased passive motion with less pain today,but continues to have a firm end feel with IR in supine,and more firm when combined with shoulder extension attempting to reach behind his back when standing.He also has pain today when attempting horizontal adduction beyond midline of his trunk. Patient Education: Education of diagnosis, Body/Joint mechanics, Home Exercise Program, Home Safety, Activity Modification, Education of Plan of Care Short Term Goals Goal #1: Patient independent in and compliant with HEP. Goal to be met by: 02/26/18 Progress towards Goal:: Progressing Goal #2: Left shoulder PROM WFL's. Goal to be met by: 03/05/18 Progress towards Goal:: Progressing Goal #3: Left shoulder active flexion to 120 degrees. Goal to be met by: 03/05/18 Progress towards Goal:: Partially Met Salesperson Burial Needs Goals Goal #1: Pt knows HEP and to continue ex's to maintain functional level at D/C. Goal to be met by: 03/26/18 Progress towards goal: Progressing Goal #2: Score on UE functional scale improved to 70/80. Goal to be met by: 03/26/18 Goal #3: L shldr AROM to enable patient to perform all ADL's and selfcare w/o pain. Goal to be met by: 03/26/18 Progress towards goal: Progressing Goal #4: Pt to demo understanding of joint protection & improved postural awareness. Goal to be met by: 03/26/18 Progress towards goal: Partially Met Plan PLAN OF CARE EXPIRES ON:: 03/26/18 ORDER # VISITS AND/OR THROUGH DATE: 03/26/18 PLAN: Continue PT to decrease L shoulder pain ,increase ROM for necessary ADL's.
--- NOTE | 2018-03-16 10:02 | RS.CXNS ---
Date of scheduled appointment: 03/13/18 Type: Cancel Reason for Cancel/NS: Unknown
--- NOTE | 2018-03-16 11:19 | RS.OPPTDC ---
Date of Discharge: 03/16/18 Date of Evaluation: 02/19/18 Number of Visits: 6 Treatment Diagnosis: Left shoulder pain Current Complaints/Gains: Patient agrees with D/C plan today,is comfortable doing his HEP.He does report feel ,"a little looser ",but only temporary relief from the pain when present. Pain Assessment - Pain Description Pain Description: Dull, Aching Pain Description: elevates dependent upon position of the L UE Current Pain Intensity: 0 at rest Other Comments regarding Pain:: sharp at end range of available motion Functional Outcome Measure UE Functional Index: 65 - G Codes & Severity Modifier G Codes & Modifier: NA Source of G Code score: NA Observation - Observation Posture: Forward Head, Rounded Shoulders Gait - Gait Pattern General Gait Pattern Observation: No Deviations/Normal General Range of Motion: WFL ,except internal rotation. Interventions - Exercise/Activities/Manual Therapy Exercises/Activities: 35 mins. total for HEP review and measurements taken for internal /external rotation ,flexion,abduction.AROM today is 140 flexion,133 scaption,IR 68,ER 45. Total minutes of Exercise: 35 Manual Therapy: NA Total minutes of Manual Therapy: 0 HOME EXERCISE PROGRAM: pendulum, RTC series in pendulum position, and scapular retraction. - Charges Timed Code Treatment Minutes: 35 Total Treatment Time: 45 Procedures billed for this date of service:: ex 2 Assessment Assessment: Patient has met rehab potential ,with increased AROM in all directions , except his internal rotation has a firmer end feel when attempting to reach behind the back.He undersatnds to not force any motion that elevates and increases the risk of further the RTC injury.He agrees with D/C today.He has good understanding of HEP. Patient Education: Education of diagnosis, Body/Joint mechanics, Home Exercise Program, Home Safety, Activity Modification, Education of Plan of Care Rehab Potential: Fair Short Term Goals Goal #1: Patient independent in and compliant with HEP. Goal to be met by: 02/26/18 Progress towards Goal:: Met Goal #2: Left shoulder PROM WFL's. Goal to be met by: 03/05/18 Progress towards Goal:: Partially Met Goal #3: Left shoulder active flexion to 120 degrees. Goal to be met by: 03/05/18 (140) Progress towards Goal:: Met Route Returner Goals Goal #1: Pt knows HEP and to continue ex's to maintain functional level at D/C. Goal to be met by: 03/26/18 Progress towards goal: Met Goal #2: Score on UE functional scale improved to 70/80. Goal to be met by: 03/26/18 (65) Progress towards goal: Progressing Goal #3: L shldr AROM to enable patient to perform all ADL's and selfcare w/o pain. Goal to be met by: 03/26/18 Progress towards goal: Partially Met Goal #4: Pt to demo understanding of joint protection & improved postural awareness. Goal to be met by: 03/26/18 Progress towards goal: Met Plan Reason for Discharge:: No Further Skilled Therapy Indicated
== END 2018-03-24 23:59 ==
PROVIDERS: ATTEND Emergency Medicine
DX: M75.112 Incomplete rotator cuff tear or rupture of left shoulder, not specified as traumatic (principal); M25.512 Pain in left shoulder; M25.612 Stiffness of left shoulder, not elsewhere classified

== ENCOUNTER 2018-03-18 13:17 | Outpatient (CLI) ==
[2017-11-03 08:39] VITALS: BMI 47.7
== END 2018-03-18 13:18 | disposition home or self-care (01) ==
LOC: RHC-LAB 13:17
PROVIDERS: ATTEND Emergency Medicine
DX: R60.9 Edema, unspecified (principal); E78.5 Hyperlipidemia, unspecified; I10 Essential (primary) hypertension; J44.9 Chronic obstructive pulmonary disease, unspecified
CPT/HCPCS: 36415; 80053; 80061; 84443; 85025

== ENCOUNTER 2018-06-10 12:37 | Outpatient (CLI) ==
[2017-11-03 08:39] VITALS: BMI 47.7
== END 2018-06-10 12:38 | disposition home or self-care (01) ==
LOC: RHC-LAB 12:37
PROVIDERS: ATTEND Nurse Practitioner Family
DX: R73.09 Other abnormal glucose (principal); E88.81 Metabolic syndrome and other insulin resistance; I10 Essential (primary) hypertension
CPT/HCPCS: 36415; 80048; 83037

== ENCOUNTER 2018-09-01 16:52 | Emergency (ER) ==
[2018-09-01 17:00] VITALS: BP 157/105; TEMP 98.4; BMI 47.4
--- NOTE | 2018-09-01 18:25 | ED.PDOC ---
General ED Provider: Dr. SHIV BROCK Chief Complaint: Abscess Stated Complaint: Swelling and abscess Rt inner thigh. Chronic and recurrent,. Currently present for last week. Denies fever or chills. Time Seen by Physician: 18:15 Mode of Arrival: Walk-In Information Source: Patient Exam Limitations: No limitations Primary Care Provider: TO KEEN Nursing and Triage Documentation Reviewed and Agree: Yes Does patient meet sepsis criteria?: No System Inflammatory Response Syndrome: Not Applicable Sepsis Protocol: For patient's 13 years and over: Temp is 96.8 and below OR 101 and greater Pulse >90 BPM Resp >20/minute Acutely Altered Mental Status Are patient's symptoms suggestive of a new infection, such as: -Pneumonia -Skin, Soft Tissue -Endocarditis -UTI -Bone, Joint Infection -Implantable Device -Acute Abdominal Infection -Wound Infection -Meningitis -Blood Stream Catheter Infection -Unknown Skin Complaint Exam - Skin/Soft Tissue Complaint/Exam Onset/Duration: 1 week Symptoms Are: Still present Timing: Constant Initial Severity: Moderate Current Severity: Moderate Location: Rt inner thigh proximally Character: Reports: Redness, Swelling, Painful Aggravating: Reports: None Alleviating: Reports: None Associated Signs and Symptoms: Reports: Tenderness, Red streaks. Denies: Fever , Chills, Itching, Drainage, Bruising, Joint swelling Related History: Reports: Similar episode Recent Exposure to Others w/Similar Symptoms: No Skin Findings: Present: Erythema, Induration, Fluctuant mass, Lymphangitic streaking, Other (multiple foci of previouls drainage sites in central firm fluctuant mass. States has never had treated surgically in past) Review of Systems - Review Of Systems Constitutional: Reports: No symptoms Eyes: Reports: No symptoms Ears, Nose, Mouth, Throat: Reports: No symptoms Respiratory: Reports: No symptoms Cardiac: Reports: No symptoms GI: Reports: No symptoms : Reports: No symptoms Musculoskeletal: Reports: No symptoms Skin: Reports: No symptoms Neurological: Reports: No symptoms Endocrine: Reports: No symptoms Hematologic/Lymphatic: Reports: No symptoms All Other Systems: Reviewed and Negative Past Medical History - Past Medical History Endocrine: Reports: DM 2, Dyslipidemia Cardiovascular: Reports: Hypertension Respiratory: Reports: COPD Hematological: Reports: None Gastrointestinal: Reports: None Genitourinary: Reports: None Neuro/Psych: Reports: None Musculoskeletal: Reports: Arthritis, Joint Pain Cancer: Reports: None - Surgical History General Surgical History: Reports: Unknown - Family History Family History: Reports: Unknown - Social History Smoking Status: Current every day smoker, Heavy tobacco smoker Hx Substance Use: No Alcohol Screening: None - Immunizations Tetanus Shot up to Date: Yes Physical Exam - Physical Exam Appearance: Well-appearing, Obese Ill-appearing: None Pain Distress: None Eyes: RADHA, EOMI, Conjunctiva clear ENT: Ears normal, Nose normal, Oropharynx normal Neck: Supple Respiratory: Airway patent, Breath sounds clear, Breath sounds equal, Respirations nonlabored Cardiovascular: RRR, Pulses normal, No rub, No murmur GI/: Soft, Nontender, No masses, Bowel sounds normal, No Organomegaly Musculoskeletal: Normal strength, ROM intact, No edema, No calf tenderness Skin: Warm (area along inner rt thigh measuring 22 X 14 cm), Dry, Normal color Neurological: Sensation intact, Motor intact, Cranial nerves intact, Alert, Oriented Psychiatric: Affect appropriate, Mood appropriate Physician Notification - Case Discussed Physician Notified: Dr Rivera Time of Notification: 19:30 (Discussed treatment plan; IM Rocephin and PO Clindamycin for home; follow up office 48 hrs) Critical Care Note - Critical Care Note Total Time (mins): 60 Course - Course Hematology/Chemistry: 09/01/18 19:20 09/01/18 19:20 Orders, Labs, Meds: Lab Review 09/01/18 09/01/18 19:20 19:20 WBC 13.11 H RBC 4.99 Hgb 14.3 Hct 42.4 MCV 85.0 MCH 28.7 MCHC 33.7 RDW Coeff of Bee 13.2 Plt Count 177 Immature Gran % (Auto) 0.7 Neut % (Auto) 71.6 Lymph % (Auto) 17.2 Pitt % (Auto) 8.8 Eos % (Auto) 1.3 Baso % (Auto) 0.4 Immature Gran # (Auto) 0.1 Neut # (Auto) 9.4 H Lymph # (Auto) 2.3 Pitt # (Auto) 1.2 Eos # (Auto) 0.2 Baso # (Auto) 0.1 Sodium 134.0 L Potassium 4.16 Chloride 98.3 Carbon Dioxide 34.2 H Anion Gap 5.66 BUN 13.7 Creatinine 0.71 Estimated GFR (MDRD) 116.00 BUN/Creatinine Ratio 19.29 Glucose 163.1 H Calcium 9.21 Orders Category Date Time Status BMP [BASIC METABOLIC PANEL] Stat LAB 09/01/18 19:20 Completed CBC W/ AUTO DIFF Stat LAB 09/01/18 19:20 Completed Ceftriaxone Sodium [Rocephin] MEDS 09/01/18 19:40 Discontinued 1 gm IM ONCE STA Clindamycin HCl [Cleocin] MEDS 09/01/18 19:41 Discontinued 300 mg PO ONCE STA Lidocaine HCl/Pf [Lidocaine HCl 1% Sdv] MEDS 09/01/18 19:40 Discontinued 2.1 ml IM ONCE STA Medications Discontinued Medications Generic Name Dose Route Start Last Admin Trade Name Antioneq PRN Reason Stop Dose Admin Ceftriaxone Sodium 1 gm 09/01/18 19:40 Rocephin IM 09/01/18 19:41 ONCE STA Clindamycin HCl 300 mg 09/01/18 19:41 Cleocin PO 09/01/18 19:42 ONCE STA Lidocaine HCl 2.1 ml 09/01/18 19:40 Lidocaine Hcl 1% Sdv IM 09/01/18 19:41 ONCE STA Vital Signs: Temp Pulse Resp BP Pulse Ox 09/01/18 16:52 98.4 F 90 20 157/105 H 91 L Departure - Departure Time of Disposition: 19:50 Disposition: HOME SELF-CARE Discharge Problem: Abscess or cellulitis of thigh Instructions: Cellulitis (ED), Abscess (ED) Condition: Fair Pt referred to PMD for follow-up: Yes (Dr Rivera in 48 hrs) IPMP verified?: No Additional Instructions: Keep thigh elevated. Apply warm moist heat to area of swelling Take antibiotics as directed See Dr Rivera in 48 hrs and if area of rednesss on thigh progresses return ER Prescriptions: Clindamycin HCl 300 mg PO QID #40 capsule Allergies/Adverse Reactions: Allergies No Known Allergies Allergy (Verified 09/01/18 17:00) Home Medications: Ambulatory Orders Clindamycin HCl 300 mg PO QID #40 capsule 09/01/18
[2018-09-01] MEDS ORDERED: LIDOCAINE HCL 1% SDV IM STA (19:40)
[2018-09-01] MEDS ORDERED: ROCEPHIN IM STA (19:40)
[2018-09-01] MEDS ORDERED: CLEOCIN PO STA (19:41)
== END 2018-09-01 20:30 | disposition home or self-care (01) ==
LOC: ED 16:52
DX: L02.415 Cutaneous abscess of right lower limb (principal); E11.9 Type 2 diabetes mellitus without complications; I10 Essential (primary) hypertension; E78.5 Hyperlipidemia, unspecified; F17.210 Nicotine dependence, cigarettes, uncomplicated
CPT/HCPCS: 36415; 80048; 85025; 96372; 99282

== ENCOUNTER 2018-09-21 11:58 | Outpatient (CLI) | END 2018-09-21 11:59 | disposition home or self-care (01) | LOC: RHC-LAB 11:58 → FCC-LAB 11:59 | PROVIDERS: ATTEND Nurse Practitioner Family | DX: R73.9 Hyperglycemia, unspecified (principal); E88.81 Metabolic syndrome and other insulin resistance; J44.9 Chronic obstructive pulmonary disease, unspecified; E11.9 Type 2 diabetes mellitus without complications | CPT/HCPCS: 36415; 83037 ==

== ENCOUNTER 2018-10-06 13:58 | Outpatient (CLI) ==
[2018-10-06 15:55] VITALS: BMI 47.5
== END 2018-10-06 13:59 | disposition home or self-care (01) ==
LOC: DIETCN 13:58
PROVIDERS: ATTEND Nurse Practitioner Family
DX: E11.9 Type 2 diabetes mellitus without complications (principal); E66.01 Morbid (severe) obesity due to excess calories
CPT/HCPCS: 97802

== ENCOUNTER 2018-10-13 14:34 | Outpatient (CLI) | END 2018-10-13 14:35 | disposition home or self-care (01) | LOC: RHC-LAB 14:34 → FCC-LAB 14:35 | PROVIDERS: ATTEND Nurse Practitioner Family | DX: E11.9 Type 2 diabetes mellitus without complications (principal); L02.415 Cutaneous abscess of right lower limb | CPT/HCPCS: 82043; 87070 ==

== ENCOUNTER 2018-11-27 10:23 | Outpatient (CLI) | END 2018-11-27 10:24 | disposition home or self-care (01) | LOC: RHC-LAB 10:23 → FCC-LAB 10:24 | PROVIDERS: ATTEND Nurse Practitioner Family | DX: E11.9 Type 2 diabetes mellitus without complications (principal) | CPT/HCPCS: 36415; 83037 ==

== ENCOUNTER 2018-12-24 12:57 | Outpatient (CLI) ==
[2018-12-24] MEDS ORDERED: ALBUTEROL 0.083% NEB NEB STA (13:19)
== END 2018-12-24 12:58 | disposition home or self-care (01) ==
LOC: CAR 12:57
PROVIDERS: ATTEND Nurse Practitioner Family
DX: J44.9 Chronic obstructive pulmonary disease, unspecified (principal)

== ENCOUNTER 2018-12-24 13:26 | Outpatient (RCR) ==
[2019-01-21 09:41] VITALS: BP 126/56
== END 2019-01-22 23:59 ==
LOC: PUL.REHAB 13:26
PROVIDERS: ATTEND Nurse Practitioner Family
DX: J44.9 Chronic obstructive pulmonary disease, unspecified (principal)

== ENCOUNTER 2019-01-14 15:49 | Outpatient (CLI) | END 2019-01-14 15:50 | disposition home or self-care (01) | LOC: RHC-LAB 15:49 | PROVIDERS: ATTEND Nurse Practitioner Family | DX: L02.31 Cutaneous abscess of buttock (principal) | CPT/HCPCS: 87081 ==

== ENCOUNTER 2019-03-25 06:59 | Outpatient (RCR) ==
[2019-04-22 10:20] VITALS: BP 114/56
== END 2019-04-24 23:59 ==
LOC: PUL.REHAB 06:59
PROVIDERS: ATTEND Nurse Practitioner Family
DX: J44.9 Chronic obstructive pulmonary disease, unspecified (principal)